=== PATIENT | female | born 2000 | race Caucasian/White ===

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

== ENCOUNTER → 2020-10-12 | Outpatient (CLI) | payer MEDICAID | END | disposition home or self-care (01) | LOC: RAD 14:36 | PROVIDERS: ATTEND Physician Assistant Medical | DX: R10.84 Generalized abdominal pain (principal) | CPT/HCPCS: 76830 ==

== ENCOUNTER 2021-01-13 11:49 | Emergency (ER) | payer MEDICAID ==
[~2021-01-13] VITALS: Ht 157.5 cm; Wt 68.0 kg
[2021-01-13 11:52] VITALS: BP 120/77
--- NOTE | 2021-01-13 11:58 | NUR ---
PT AMBULATED BACK TO ROOM WITHOUT DIFFICULTY.
--- NOTE | 2021-01-13 12:14 | NUR ---
ERP AT BS.
--- NOTE | 2021-01-13 12:37 | NUR ---
WATER PROVIDED TO PT. AMBULATED TO BR, INSTRUCTED ON CLEAN CATCH URINE SAMPLE.
--- NOTE | 2021-01-13 12:46 | NUR ---
PT TO US VIA [facility].
[2021-01-13 12:56] LABS: BASOPHILS % (AUTO) 1 % (0-1); EOSINOPHILS % (AUTO) 1 % (1-7); LYMPHOCYTES % (AUTO) 20 % (22-44); MEAN CORPUSCULAR HEMOGLOBIN 29.7 pg (27.0-34.8); MEAN CORPUSCULAR HGB CONC 34.1 g/dL (32.4-35.8); MEAN PLATELET VOLUME 9.2 fL (7.4-10.4); MONOCYTES % (AUTO) 6 % (2-9); NEUTROPHILS % (AUTO) 72 % (42-75); PLATELET COUNT 235 x10^3/uL (130-400); RED BLOOD COUNT 4.32 x10^6/uL (3.82-5.3); RED CELL DISTRIBUTION WIDTH 12.7 % (9.6-15.2)
[2021-01-13 12:59] LABS: MD NO
[2021-01-13 13:08] LABS: ALBUMIN 3.6 g/dL (3.4-5.0); ANION GAP 4 mmol/L (5-15); CALCIUM 8.9 mg/dL (8.5-10.1); CHLORIDE 109 mmol/L (98-107); CREATININE 0.43 mg/dL (0.55-1.02)
[2021-01-13 13:16] LABS: MICROSCOPIC INDICATED
--- NOTE | 2021-01-13 14:23 | NUR ---
D/C INSTRUCTIONS, MEDS & F/U APPT RV'WD WITH PT, SHE VERBALIZES UNDERSTANDING. RX GIVEN X1. PT AMBULATED OUT OF ED WITH SIGNIFICANT OTHER WITHOUT DIFFICULTY.
== END 2021-01-13 14:23 | disposition home or self-care (01) ==
LOC: ED 14:18
DX: O00.01 Abdominal pregnancy with intrauterine pregnancy (principal); O23.91 Unspecified genitourinary tract infection in pregnancy, first trimester; Z3A.11 11 weeks gestation of pregnancy
CPT/HCPCS: 36415; 76801; 80048; 81001; 82040; 84702; 85025; 87086; 99284

== ENCOUNTER 2021-03-05 09:39 | Emergency (ER) | payer MEDICAID ==
[~2021-03-05] VITALS: Ht 157.5 cm; Wt 68.2 kg
[2021-03-05 09:55] VITALS: BP 107/72
--- NOTE | 2021-03-05 10:18 | NUR ---
Pt had dental pain since monday on the right dylan eof face, became swollen, worried about tooth infection. Only pain med taken is tylenol, denies any allergies to medication, VSS, NADN.
--- NOTE | 2021-03-05 10:25 | NUR ---
Pt provided ice for facial swelling from dental pain
--- NOTE | 2021-03-05 10:33 | NUR ---
Chayo RESENDIZ at bedside to discuss POC
== END 2021-03-05 10:57 | disposition home or self-care (01) ==
LOC: ED 10:46
DX: K08.89 Other specified disorders of teeth and supporting structures (principal)
CPT/HCPCS: 99283

== ENCOUNTER 2021-03-23 17:01 | Emergency (ER) | payer MEDICAID ==
[~2021-03-23] VITALS: Ht 154.9 cm; Wt 69.9 kg
[2021-03-23 18:18] VITALS: BP 128/84
--- NOTE | 2021-03-23 18:18 | NUR ---
PT REC'VD DISCHARGE INSTRUCTIONS AND EDUCATION. PT HAD NO FURTHER QUESTIONS.
--- NOTE | 2021-03-23 18:20 | NUR ---
PT AMBULATED TO HI AREA, STEADY GAIT.
== END 2021-03-23 18:45 | disposition home or self-care (01) ==
LOC: ED 18:15
DX: K08.89 Other specified disorders of teeth and supporting structures (principal)
CPT/HCPCS: 99283

== ENCOUNTER 2021-03-24 12:39 | Outpatient (CLI) | payer MEDICAID ==
[~2021-03-24] VITALS: Ht 154.9 cm; Wt 69.1 kg
[2021-03-24 12:55] VITALS: BP 111/73
[2021-03-24 13:32] LABS: MICROSCOPIC INDICATED
[2021-03-24 13:40] LABS: AMPHETAMINE SCREEN, URINE Negative (Negative); BARBITURATE SCREEN, URINE Negative (Negative); BENZODIAZEPINE SCREEN, URINE Negative (Negative); CANNABINOID SCREEN, URINE Negative (Negative); COCAINE SCREEN, URINE Negative (Negative); METHADONE SCREEN, URINE Negative (Negative); OPIATE SCREEN, URINE Negative (Negative)
== END 2021-03-24 14:18 | disposition home or self-care (01) ==
LOC: LDOP 12:39
PROVIDERS: ATTEND Obstetrics & Gynecology
DX: O26.892 Other specified pregnancy related conditions, second trimester (principal); R10.9 Unspecified abdominal pain; Z3A.21 21 weeks gestation of pregnancy
CPT/HCPCS: 59025; 80307; 81001; 87077; 87086; 99211; G0463